=== PATIENT | female | born 1955 | race African-American/Black ===

== ENCOUNTER 2022-02-04 08:54 | Inpatient (IN) | payer MEDICAID, OTHER ==
[~2022-02-04] VITALS: Ht 152.4 cm; Wt 43.6 kg
[2022-02-04 09:30] LABS: Basophils # (auto) 0.1 10 ^3/uL (0-0.2); Eosinophils # (auto) 0 10 ^3/uL (0-0.8); Eosinophils % (auto) 0.3 % (0.0-7.0); Nucleated Red Blood Cells % 0.2 %
[2022-02-04 09:32] LABS: Basophils % (auto) 0.6 % (0.0-2.0); Hematocrit 50.6 % (36.0-46.0); Hemoglobin 16.4 g/dL (12.2-16.2); Lymphocytes # (auto) 2.4 10 ^3/uL (0.4-5.4); Lymphocytes % (auto) 23.6 % (10.0-50.0); Mean Corpuscular Hemoglobin 25.9 pg (28.0-32.0); Mean Corpuscular Hgb Conc. 32.4 g/dL (32.0-36.0); Mean Corpuscular Volume 79.9 fL (80.0-100.0); Monocytes % (auto) 9.4 % (0.0-12.0); Neutrophils # (auto) 6.9 10 ^3/uL (1.6-8.6); Neutrophils % (auto) 66.1 % (37.0-80.0); Red Blood Cells 6.34 10^6/uL (4.0-5.20); Red Cell Distribution Width 15.1 % (11.8-14.3); White Blood Cell 10.4 10^3/uL (4.4-10.8)
[2022-02-04 09:51] LABS: Calcium 9.3 mg/dL (8.5-10.1)
[2022-02-04 09:57] LABS: BUN/Creatinine Ratio 20.5; Bilirubin, Total 0.9 mg/dL (0.2-1.0); Total Protein 8.6 g/dL (6.4-8.2)
[2022-02-04] MEDS ORDERED: ASPirin 325 MG TAB PO ONE (10:15)
[2022-02-04 10:38] LABS: Urine Amorphous Crystal FEW /hpf (None Seen); Urine Bacteria FEW /hpf (None Seen); Urine Blood TRACE /uL (Negative); Urine Specific Gravity 1.016 (1.001-1.035); Urine WBC 1 /hpf (0 - 5)
[2022-02-04 11:30] LABS: Potassium 4.1 mmol/L (3.5-5.1)
[2022-02-04] MEDS ORDERED: IPRATROPIUM BROM 0.5 MG/2.5ML INH SOL NEB ONE (12:30)
[2022-02-04] MEDS ORDERED: DexAMETHasone 4 MG TAB PO ONE (12:30)
[2022-02-04] MEDS ORDERED: ALBUTEROL SULF 2.5 MG/0.5ML(0.5%) NEB SOLN NEB ONE (12:30)
[2022-02-04] MEDS ORDERED: NITROGLYCERIN 0.4 MG SL TAB SL PRN (13:15)
[2022-02-04] MEDS ORDERED: hydrALAZINE HCL 20 MG/ML VL IV PRN (13:15)
[2022-02-04] MEDS ORDERED: MORPHINE SULFATE INJ 2 MG/ml SYRG IV PRN (13:15)
[2022-02-04] MEDS ORDERED: IOHEXOL 350 MG/ML 100ML IJ ONE (13:44)
[2022-02-04 13:59] LABS: Cholesterol 155 mg/dL (< 200)
[2022-02-04 14:02] LABS: HDL Cholesterol 60 mg/dL (40-59); LDL Cholesterol 88 mg/dL (< 100); Triglycerides 81 mg/dL (< 150)
[2022-02-04 14:05] LABS: Alcohol, Urine < 3.0 mg/dL (0-10); Amphetamine Screen, Urine NEGATIVE (NEGATIVE); Barbiturate Scree,Urine NEGATIVE (NEGATIVE); Benzodiazephine Screen, Urine NEGATIVE (NEGATIVE); Cannabinoid Screen, Urine POSITIVE (NEGATIVE); Cocaine Screen, Urine NEGATIVE (NEGATIVE); Opiate Scree,Urine NEGATIVE (NEGATIVE); Phencyclidine Screen, Urine NEGATIVE (NEGATIVE)
[2022-02-04] MEDS ORDERED: HEPARIN SODIUM (PORCINE) 5000 UNITS/ML 1ML VIAL SC ONE (16:30)
[2022-02-04] MEDS ORDERED: DEXTROSE (50%) 50ML SYRG IV PRN (16:45)
[2022-02-04] MEDS: ACCU-CHEK COMFORT CURVE STRIP VI SCH ×2 (17:15→22:10)
[2022-02-04] MEDS: InsuLIN REG 1unit/0.01ml Soln (100units/ml) SC SCH ×2 (17:16→22:13)
[2022-02-04 18:09] LABS: INR 1.05 (0.9-1.15); Partial Thromboplastin Time 26.4 sec (24.6-33.4)
[2022-02-05 05:00] VITALS: BP 133/83
[2022-02-05] MEDS ORDERED: AMLO-489 PO (05:41)
[2022-02-05 05:47] LABS: Basophils # (auto) 0 10 ^3/uL (0-0.2); Eosinophils # (auto) 0 10 ^3/uL (0-0.8); Lymphocytes # (auto) 0.9 10 ^3/uL (0.4-5.4); Mean Corpuscular Volume 79.5 fL (80.0-100.0); Monocytes # (auto) 0.2 10 ^3/uL (0-1.3); Neutrophils # (auto) 5.5 10 ^3/uL (1.6-8.6)
[2022-02-05 05:50] LABS: Basophils % (auto) 0.2 % (0.0-2.0); Hematocrit 46.1 % (36.0-46.0); Hemoglobin 15.4 g/dL (12.2-16.2); Lymphocytes % (auto) 13.5 % (10.0-50.0); Mean Corpuscular Hemoglobin 26.5 pg (28.0-32.0); Mean Corpuscular Hgb Conc. 33.4 g/dL (32.0-36.0); Monocytes % (auto) 3.5 % (0.0-12.0); Neutrophils % (auto) 82.8 % (37.0-80.0); Nucleated Red Blood Cells % 0.1 %; Red Cell Distribution Width 14.9 % (11.8-14.3); White Blood Cell 6.7 10^3/uL (4.4-10.8)
[2022-02-05] MEDS: HEPARIN SODIUM (PORCINE) 5000 UNITS/ML 1ML VIAL SC SCH ×2 (06:03→17:33)
[2022-02-05] MEDS: ACCU-CHEK COMFORT CURVE STRIP VI SCH ×4 (06:04→22:29)
[2022-02-05] MEDS: ACETAMINOPHEN 325 MG TAB PO PRN (06:04)
[2022-02-05] MEDS: InsuLIN REG 1unit/0.01ml Soln (100units/ml) SC SCH ×4 (06:05→22:33)
[2022-02-05 06:08] LABS: Albumin 2.7 g/dL (3.4-5.0); Calcium 9.2 mg/dL (8.5-10.1); Potassium 3.5 mmol/L (3.5-5.1)
[2022-02-05 06:12] LABS: BUN/Creatinine Ratio 30.9; Bilirubin, Total 0.6 mg/dL (0.2-1.0); Total Protein 7.5 g/dL (6.4-8.2)
[2022-02-05 08:54] VITALS: BP 160/89
[2022-02-05] MEDS: amLODIPine BESYLATE 5 MG TAB PO SCH (09:29)
[2022-02-05] MEDS ORDERED: HCTZ 25 MG TAB PO ONE (10:15)
[2022-02-05 13:00] VITALS: BP 146/78
[2022-02-05 16:55] VITALS: BP 144/89
[2022-02-05 22:00] VITALS: BP 121/81
[2022-02-06 05:00] VITALS: BP 136/78
[2022-02-06] MEDS: HEPARIN SODIUM (PORCINE) 5000 UNITS/ML 1ML VIAL SC SCH ×2 (06:06→17:00)
[2022-02-06] MEDS: InsuLIN REG 1unit/0.01ml Soln (100units/ml) SC SCH ×4 (06:08→22:11)
[2022-02-06] MEDS: ACCU-CHEK COMFORT CURVE STRIP VI SCH ×4 (06:11→22:09)
[2022-02-06 08:10] VITALS: BP 141/88
[2022-02-06 09:00] VITALS: BP 141/88
[2022-02-06] MEDS ORDERED: LACTULOSE 20Gm/30ML SOLN PO ONE (09:15)
[2022-02-06] MEDS: DOCUSATE SOD 100 MG CAP PO SCH ×2 (09:43→22:00)
[2022-02-06] MEDS: ACETAMINOPHEN 325 MG TAB PO PRN (09:44)
[2022-02-06] MEDS: HCTZ 25 MG TAB PO SCH (09:44)
[2022-02-06] MEDS: amLODIPine BESYLATE 5 MG TAB PO SCH (09:44)
[2022-02-06 12:51] VITALS: BP 134/86
[2022-02-06] MEDS ORDERED: diphenhdrAMINE HCL 50 MG/1 ML VL IV ONE (14:45)
[2022-02-06 17:00] VITALS: BP 130/76
[2022-02-06] MEDS: MORPHINE SULFATE INJ 2 MG/ml SYRG IV PRN (20:23)
[2022-02-06 22:00] VITALS: BP 149/87
[2022-02-07] MEDS: HEPARIN SODIUM (PORCINE) 5000 UNITS/ML 1ML VIAL SC SCH ×2 (04:32→17:00)
[2022-02-07 05:00] VITALS: BP 137/83
[2022-02-07] MEDS: InsuLIN REG 1unit/0.01ml Soln (100units/ml) SC SCH ×5 (06:13→22:05)
[2022-02-07] MEDS: ACCU-CHEK COMFORT CURVE STRIP VI SCH ×4 (06:13→22:06)
[2022-02-07] MEDS: amLODIPine BESYLATE 5 MG TAB PO SCH (10:03)
[2022-02-07] MEDS: DOCUSATE SOD 100 MG CAP PO SCH ×2 (10:03→22:04)
[2022-02-07] MEDS: HCTZ 25 MG TAB PO SCH (10:04)
[2022-02-07] MEDS: MORPHINE SULFATE INJ 2 MG/ml SYRG IV PRN ×2 (10:05→17:31)
[2022-02-07 12:40] VITALS: BP 128/82
[2022-02-07 16:32] VITALS: BP 102/70
[2022-02-07 20:04] LABS: Urine Bacteria FEW /hpf (None Seen); Urine Blood Negative /uL (Negative); Urine Hyaline Cast FEW /lpf (0 - 2); Urine Mucus FEW (None Seen); Urine Specific Gravity 1.018 (1.001-1.035); Urine WBC 3 /hpf (0 - 5)
[2022-02-07 22:00] VITALS: BP 120/79
[2022-02-08] MEDS: HEPARIN SODIUM (PORCINE) 5000 UNITS/ML 1ML VIAL SC SCH ×2 (05:00→17:00)
[2022-02-08 06:01] VITALS: BP 110/84
[2022-02-08 07:30] VITALS: BP 111/69
[2022-02-08] MEDS: ACCU-CHEK COMFORT CURVE STRIP VI SCH ×4 (07:46→22:52)
[2022-02-08 08:35] VITALS: BP 111/69
[2022-02-08] MEDS: MORPHINE SULFATE INJ 2 MG/ml SYRG IV PRN ×2 (08:54→14:30)
[2022-02-08] MEDS: HCTZ 25 MG TAB PO SCH (10:57)
[2022-02-08] MEDS: DOCUSATE SOD 100 MG CAP PO SCH ×2 (10:57→22:51)
[2022-02-08] MEDS: amLODIPine BESYLATE 5 MG TAB PO SCH (10:58)
[2022-02-08 11:44] VITALS: BP 107/71
[2022-02-08] MEDS: InsuLIN REG 1unit/0.01ml Soln (100units/ml) SC SCH ×3 (12:21→22:48)
[2022-02-08 16:56] VITALS: BP 104/67
[2022-02-08] MEDS: ACETAMINOPHEN 325 MG TAB PO PRN (19:51)
[2022-02-08 22:11] VITALS: BP 122/61
[2022-02-09] MEDS: HYDROcodone-ACET 5/325MG TAB PO PRN (04:02)
[2022-02-09 05:16] VITALS: BP 114/65
[2022-02-09] MEDS: HEPARIN SODIUM (PORCINE) 5000 UNITS/ML 1ML VIAL SC SCH ×2 (05:50→17:00)
[2022-02-09] MEDS: InsuLIN REG 1unit/0.01ml Soln (100units/ml) SC SCH ×4 (06:39→21:48)
[2022-02-09] MEDS: ACCU-CHEK COMFORT CURVE STRIP VI SCH ×4 (06:41→21:48)
[2022-02-09 07:30] VITALS: BP 134/81
[2022-02-09] MEDS ORDERED: LACTULOSE 20Gm/30ML SOLN PO ONE (08:45)
[2022-02-09] MEDS: MORPHINE SULFATE INJ 2 MG/ml SYRG IV PRN (09:20)
[2022-02-09] MEDS: amLODIPine BESYLATE 5 MG TAB PO SCH (10:01)
[2022-02-09] MEDS: DOCUSATE SOD 100 MG CAP PO SCH ×2 (10:01→21:27)
[2022-02-09] MEDS: HCTZ 25 MG TAB PO SCH (10:01)
[2022-02-09 11:51] VITALS: BP 104/77
[2022-02-09] MEDS: ACETAMINOPHEN 325 MG TAB PO PRN (16:09)
[2022-02-09 16:11] VITALS: BP 112/72
[2022-02-09] MEDS ORDERED: MELATONIN 5 MG TAB PO ONE (21:00)
[2022-02-09 22:00] VITALS: BP 140/76
[2022-02-10 05:00] VITALS: BP 150/87
[2022-02-10] MEDS: HEPARIN SODIUM (PORCINE) 5000 UNITS/ML 1ML VIAL SC SCH ×2 (05:00→17:00)
[2022-02-10] MEDS: ACCU-CHEK COMFORT CURVE STRIP VI SCH ×4 (06:20→22:15)
[2022-02-10] MEDS: InsuLIN REG 1unit/0.01ml Soln (100units/ml) SC SCH ×4 (06:21→22:19)
[2022-02-10 08:32] VITALS: BP 119/79
[2022-02-10] MEDS: HCTZ 25 MG TAB PO SCH (10:03)
[2022-02-10] MEDS: DOCUSATE SOD 100 MG CAP PO SCH ×2 (10:03→22:15)
[2022-02-10] MEDS: amLODIPine BESYLATE 5 MG TAB PO SCH (10:04)
[2022-02-10] MEDS: ACETAMINOPHEN 325 MG TAB PO PRN (10:10)
[2022-02-10 12:00] VITALS: BP 111/82
[2022-02-10 16:37] VITALS: BP 113/74
[2022-02-10 20:00] VITALS: BP 125/86
[2022-02-10 22:00] VITALS: BP 125/86
[2022-02-10] MEDS: HYDROcodone-ACET 5/325MG TAB PO PRN (22:15)
[2022-02-11 05:00] VITALS: BP 141/90
[2022-02-11] MEDS: HEPARIN SODIUM (PORCINE) 5000 UNITS/ML 1ML VIAL SC SCH (05:00)
[2022-02-11] MEDS: ACCU-CHEK COMFORT CURVE STRIP VI SCH ×2 (06:29→11:30)
[2022-02-11] MEDS: InsuLIN REG 1unit/0.01ml Soln (100units/ml) SC SCH ×2 (06:31→11:30)
[2022-02-11 07:11] VITALS: BP 129/88
[2022-02-11] MEDS: DOCUSATE SOD 100 MG CAP PO SCH (08:52)
[2022-02-11] MEDS: amLODIPine BESYLATE 5 MG TAB PO SCH (08:52)
[2022-02-11] MEDS: HCTZ 25 MG TAB PO SCH (08:53)
[2022-02-11] MEDS ORDERED: METF-372 PO (09:20)
[2022-02-11] MEDS: ACETAMINOPHEN 325 MG TAB PO PRN (09:43)
[2022-02-11 11:41] VITALS: BP 129/88
[2022-02-11 12:03] VITALS: BP 124/80
== END 2022-02-11 12:00 | disposition home or self-care (01) | DRG 205 ==
LOC: ER 08:54 → TELE 13:13 → TELE-CENTR 20:51
PROVIDERS: ADMIT Registered Nurse; ATTEND Family Medicine
DX: I42.2 Other hypertrophic cardiomyopathy (principal); J81.0 Acute pulmonary edema; I21.A1 Myocardial infarction type 2; R64 Cachexia; J43.9 Emphysema, unspecified; I44.4 Left anterior fascicular block; E11.9 Type 2 diabetes mellitus without complications; I25.10 Atherosclerotic heart disease of native coronary artery without angina pectoris; I49.1 Atrial premature depolarization; Z95.5 Presence of coronary angioplasty implant and graft; D25.9 Leiomyoma of uterus, unspecified; Z20.822 Contact with and (suspected) exposure to COVID-19; I10 Essential (primary) hypertension; K59.00 Constipation, unspecified; R31.9 Hematuria, unspecified; K80.20 Calculus of gallbladder without cholecystitis without obstruction; E78.5 Hyperlipidemia, unspecified; Z71.6 Tobacco abuse counseling; Z68.1 Body mass index [BMI] 19.9 or less, adult; F17.210 Nicotine dependence, cigarettes, uncomplicated; Z79.84 Long term (current) use of oral hypoglycemic drugs; R91.8 Other nonspecific abnormal finding of lung field
CPT/HCPCS: 36415; 71045; 71275; 74176; 80053; 80061; 80307; 81001; 82962; 83036; 83880; 84443; 84484; 85025; 85610; 85730; 87086; 87426; 93005; 93306; 94640; 96372; 99291; G0378; J1815

== ENCOUNTER 2022-02-23 10:53 | Emergency (ER) | payer MEDICAID ==
[~2022-02-23] VITALS: Ht 152.4 cm; Wt 45.4 kg
[~2022-02-23 10:53] MED LIST: AMLO-489 PO; METF-372 PO
[2022-02-23 11:28] VITALS: BP 114/63
[2022-02-23] MEDS ORDERED: AMLO-489 PO ×2 (11:38→11:39)
== END 2022-02-23 11:44 | disposition home or self-care (01) ==
LOC: ER 10:53
DX: I10 Essential (primary) hypertension (principal); E11.9 Type 2 diabetes mellitus without complications; F17.210 Nicotine dependence, cigarettes, uncomplicated; Z76.0 Encounter for issue of repeat prescription; Z79.899 Other long term (current) drug therapy

== ENCOUNTER 2022-06-10 17:26 | Inpatient (IN) | payer MEDICAID ==
[~2022-06-10] VITALS: Ht 154.9 cm; Wt 33.4 kg
[2022-06-10] MEDS ORDERED: SODIUM CHLORIDE 0.9% 500 ML IVB ONE (18:15)
[2022-06-10 18:29] LABS: Basophils # (auto) 0.1 10 ^3/uL (0-0.2); Basophils % (auto) 0.5 % (0.0-2.0); Eosinophils # (auto) 0 10 ^3/uL (0-0.8); Hematocrit 39.7 % (36.0-46.0); Hemoglobin 12.9 g/dL (12.2-16.2); Lymphocytes # (auto) 0.9 10 ^3/uL (0.4-5.4); Lymphocytes % (auto) 5.3 % (10.0-50.0); Mean Corpuscular Hemoglobin 26.3 pg (28.0-32.0); Mean Corpuscular Hgb Conc. 32.5 g/dL (32.0-36.0); Monocytes # (auto) 0.7 10 ^3/uL (0-1.3); Monocytes % (auto) 4.2 % (0.0-12.0); Neutrophils # (auto) 14.9 10 ^3/uL (1.6-8.6); Nucleated Red Blood Cells % 0.1 %; Red Cell Distribution Width 15.3 % (11.8-14.3); White Blood Cell 16.6 10^3/uL (4.4-10.8)
[2022-06-10 18:43] LABS: INR 1.21 (0.9-1.15); Partial Thromboplastin Time 21.7 sec (24.6-33.4)
[2022-06-10 18:45] LABS: Anion Gap 14 (5-15); Blood Urea Nitrogen 14 mg/dL (7-18); Calcium 9.6 mg/dL (8.5-10.1); Carbon Dioxide 26 mmol/L (21-32); Chloride 96 mmol/L (98-107); Glucose 176 mg/dL (74-106); Potassium 3.1 mmol/L (3.5-5.1); Sodium 136 mmol/L (136-145)
[2022-06-10 19:03] LABS: Alanine Aminotransferase 41 U/L (13-56); Alkaline Phosphatase 73 U/L (45-117); Aspartate Aminotransferase 49 U/L (15-37); BUN/Creatinine Ratio 24.1; Bilirubin, Total 0.4 mg/dL (0.2-1.0); Blood Alcohol < 3.0 mg/dL (0-5); GFR African American 135 mL/min; GFR Non-African American 111 mL/min
[2022-06-10] MEDS ORDERED: SODIUM CHLORIDE 0.9% 1,000 ML IV SCH (21:00)
[2022-06-10] MEDS ORDERED: ACETAMINOPHEN 325 MG TAB PO PRN (21:00)
[2022-06-10] MEDS ORDERED: MORPHINE SULFATE INJ 2 MG/ml SYRG IV PRN (21:00)
[2022-06-10] MEDS ORDERED: ONDANSETRON HCL 4 MG/2 ML VIAL IV PRN (21:00)
[2022-06-10] MEDS ORDERED: POTASSIUM CHL 20MEQ/100ML 100 ML IV ONE (21:00)
[2022-06-10] MEDS ORDERED: HYDROcodone-ACET 5/325MG TAB PO PRN (21:00)
[2022-06-10] MEDS: cefTRIAXone 1GM/50ML D5W 50 ML IV SCH (21:27)
[2022-06-10] MEDS: METOPROLOL TARTRATE 25 MG TAB PO SCH ×2 (21:29→22:00)
[2022-06-11 06:56] LABS: Basophils # (auto) 0 10 ^3/uL (0-0.2); Basophils % (auto) 0.3 % (0.0-2.0); Eosinophils # (auto) 0 10 ^3/uL (0-0.8); Eosinophils % (auto) 0.1 % (0.0-7.0); Hematocrit 35.1 % (36.0-46.0); Hemoglobin 11.6 g/dL (12.2-16.2); Lymphocytes # (auto) 1.6 10 ^3/uL (0.4-5.4); Lymphocytes % (auto) 13.1 % (10.0-50.0); Mean Corpuscular Hemoglobin 25.5 pg (28.0-32.0); Mean Corpuscular Hgb Conc. 32.9 g/dL (32.0-36.0); Mean Corpuscular Volume 77.3 fL (80.0-100.0); Monocytes % (auto) 8.3 % (0.0-12.0); Neutrophils # (auto) 9.6 10 ^3/uL (1.6-8.6); Neutrophils % (auto) 78.2 % (37.0-80.0); Red Blood Cells 4.54 10^6/uL (4.0-5.20); Red Cell Distribution Width 14.6 % (11.8-14.3); White Blood Cell 12.3 10^3/uL (4.4-10.8)
[2022-06-11 07:09] LABS: BUN/Creatinine Ratio 23.1; Calcium 8.2 mg/dL (8.5-10.1)
[2022-06-11 07:12] LABS: Alcohol, Urine < 3.0 mg/dL (0-10); Amphetamine Screen, Urine NEGATIVE (NEGATIVE); Barbiturate Scree,Urine NEGATIVE (NEGATIVE); Benzodiazephine Screen, Urine NEGATIVE (NEGATIVE); Cannabinoid Screen, Urine POSITIVE (NEGATIVE); Cocaine Screen, Urine NEGATIVE (NEGATIVE)
[2022-06-11 07:19] LABS: Opiate Scree,Urine NEGATIVE (NEGATIVE); Phencyclidine Screen, Urine NEGATIVE (NEGATIVE)
[2022-06-11 07:24] LABS: Potassium 2.4 mmol/L (3.5-5.1)
[2022-06-11 07:47] LABS: Urine Bacteria NONE SEEN /hpf (None Seen); Urine Blood Negative /uL (Negative); Urine Specific Gravity 1.009 (1.001-1.035); Urine WBC 1 /hpf (0 - 5)
[2022-06-11] MEDS ORDERED: POTASSIUM EFFERVESENT TAB 25 MEQ PO ONE (09:00)
[2022-06-11] MEDS: POTASSIUM CHL 20MEQ/100ML 100 ML IV SCH ×2 (09:55→13:38)
[2022-06-11] MEDS ORDERED: LORazepam 2MG/ML-1ML VIAL ONE (10:30)
[2022-06-11] MEDS ORDERED: LORazepam 2MG/ML-1ML VIAL IV STA (10:31)
[2022-06-11] MEDS: METOPROLOL TARTRATE 25 MG TAB PO SCH ×2 (10:59→21:49)
[2022-06-11] MEDS: cefTRIAXone 1GM/50ML D5W 50 ML IV SCH (11:17)
[2022-06-11] MEDS ORDERED: HYDROcodone-ACET 5/325MG TAB PO PRN (11:45)
[2022-06-11] MEDS ORDERED: ONDANSETRON HCL 4 MG/2 ML VIAL IV PRN (11:45)
[2022-06-11] MEDS ORDERED: IPRATROPIUM BROM 0.5 MG/2.5ML INH SOL NEB PRN (11:45)
[2022-06-11] MEDS ORDERED: METOPROLOL TARTRATE 1MG/1ML-5ML VIAL IV ONE (11:45)
[2022-06-11] MEDS ORDERED: ACETAMINOPHEN 500 MG TAB PO PRN (11:45)
[2022-06-11] MEDS ORDERED: ALBUTEROL MEDNEB 2.5 mg/3ml NEB NEB PRN (11:45)
[2022-06-11] MEDS ORDERED: GADOTERATE MEG 7.5 MMOL/15ml INJ (0.5MMOL/ml) IV ONE (11:52)
[2022-06-11 14:33] VITALS: BP 124/78
[2022-06-11] MEDS: MAGNESIUM SULFATE 1GM/100ML 100 ML IV SCH ×2 (16:14→16:51)
[2022-06-11] MEDS: D5W/SOD CHL 0.45%/KCL 20MEQ 1,000 ML IV SCH (16:41)
[2022-06-11] MEDS ORDERED: LORazepam 2MG/ML-1ML VIAL IV PRN (20:30)
[2022-06-12 05:40] LABS: Basophils # (auto) 0 10 ^3/uL (0-0.2); Basophils % (auto) 0.3 % (0.0-2.0); Eosinophils # (auto) 0 10 ^3/uL (0-0.8); Hematocrit 37.6 % (36.0-46.0); Hemoglobin 12.1 g/dL (12.2-16.2); Lymphocytes # (auto) 0.7 10 ^3/uL (0.4-5.4); Lymphocytes % (auto) 5.2 % (10.0-50.0); Mean Corpuscular Hemoglobin 25.5 pg (28.0-32.0); Mean Corpuscular Hgb Conc. 32.2 g/dL (32.0-36.0); Mean Corpuscular Volume 79.1 fL (80.0-100.0); Monocytes # (auto) 0.4 10 ^3/uL (0-1.3); Monocytes % (auto) 2.9 % (0.0-12.0); Neutrophils # (auto) 12.3 10 ^3/uL (1.6-8.6); Neutrophils % (auto) 91.6 % (37.0-80.0); Nucleated Red Blood Cells % 0.2 %; Red Blood Cells 4.76 10^6/uL (4.0-5.20); Red Cell Distribution Width 15.4 % (11.8-14.3); White Blood Cell 13.5 10^3/uL (4.4-10.8)
[2022-06-12] MEDS: D5W/SOD CHL 0.45%/KCL 20MEQ 1,000 ML IV SCH ×2 (05:53→14:38)
[2022-06-12 05:54] LABS: Albumin 2.4 g/dL (3.4-5.0); Calcium 7.9 mg/dL (8.5-10.1); Potassium 3.4 mmol/L (3.5-5.1)
[2022-06-12 05:57] LABS: BUN/Creatinine Ratio 20.7; Bilirubin, Total 0.6 mg/dL (0.2-1.0); Total Protein 7.4 g/dL (6.4-8.2)
[2022-06-12] MEDS: METOPROLOL TARTRATE 25 MG TAB PO SCH ×2 (10:00→22:35)
[2022-06-12] MEDS: cefTRIAXone 1GM/50ML D5W 50 ML IV SCH (10:32)
[2022-06-12] MEDS: AZITHROMYCIN 500MG/ 250ML 250 ML IV SCH (11:16)
[2022-06-13] MEDS ORDERED: LABETALOL HCL 5 MG/ML 4ML SYRINGE IV ONE (01:45)
[2022-06-13] MEDS ORDERED: hydrALAZINE HCL 20 MG/ML VL IV ONE (03:30)
[2022-06-13] MEDS: D5W/SOD CHL 0.45%/KCL 20MEQ 1,000 ML IV SCH ×2 (04:06→17:10)
[2022-06-13] MEDS: cefTRIAXone 1GM/50ML D5W 50 ML IV SCH (10:08)
[2022-06-13] MEDS: METOPROLOL TARTRATE 25 MG TAB PO SCH (10:11)
[2022-06-13] MEDS: AZITHROMYCIN 500MG/ 250ML 250 ML IV SCH (10:51)
[2022-06-13] MEDS ORDERED: DEXA6TAB6 PO (14:34)
[2022-06-13 19:28] VITALS: BP 141/84
[2022-06-14] MEDS ORDERED: AZITHROMYCIN 250 MG TAB PO SCH (10:00)
== END 2022-06-13 19:30 | disposition hospice, home (50) | DRG 41 ==
LOC: ER 17:26 → TELE 20:55
PROVIDERS: ADMIT Hospitalist; ATTEND Nurse Practitioner Acute Care
DX: C79.31 Secondary malignant neoplasm of brain (principal); G93.41 Metabolic encephalopathy; G93.6 Cerebral edema; R64 Cachexia; R65.10 Systemic inflammatory response syndrome (SIRS) of non-infectious origin without acute organ dysfunction; J96.10 Chronic respiratory failure, unspecified whether with hypoxia or hypercapnia; G40.401 Other generalized epilepsy and epileptic syndromes, not intractable, with status epilepticus; C34.90 Malignant neoplasm of unspecified part of unspecified bronchus or lung; I48.91 Unspecified atrial fibrillation; E78.5 Hyperlipidemia, unspecified; E11.9 Type 2 diabetes mellitus without complications; E87.6 Hypokalemia; I10 Essential (primary) hypertension; Z20.822 Contact with and (suspected) exposure to COVID-19; N39.0 Urinary tract infection, site not specified; F17.210 Nicotine dependence, cigarettes, uncomplicated; I25.10 Atherosclerotic heart disease of native coronary artery without angina pectoris; J44.9 Chronic obstructive pulmonary disease, unspecified; Z85.118 Personal history of other malignant neoplasm of bronchus and lung; Z86.19 Personal history of other infectious and parasitic diseases; Z51.5 Encounter for palliative care
CPT/HCPCS: 36415; 70450; 70553; 71045; 80048; 80053; 80307; 80320; 81001; 82962; 83735; 84132; 84484; 85025; 85610; 85730; 87086; 87426; 92610; 93005; 96360; G0378; J0696; J1100; J3480; J3490; J7060